=== PATIENT | female | born 1960 | race Hispanic/Latino ===

== ENCOUNTER 2018-10-24 22:14 | Emergency (ER) | payer OTHER, SELFPAY ==
[2018-10-24] MEDS ORDERED: diphenhydrAMINE 25 MG CAP ONE (22:41)
== END 2018-10-24 22:48 | disposition home or self-care (01) ==
LOC: NAV ERS 22:14
DX: S00.262A Insect bite (nonvenomous) of left eyelid and periocular area, initial encounter (principal); R21 Rash and other nonspecific skin eruption; F32.9 Major depressive disorder, single episode, unspecified; E11.9 Type 2 diabetes mellitus without complications; Z79.84 Long term (current) use of oral hypoglycemic drugs; W57.XXXA Bitten or stung by nonvenomous insect and other nonvenomous arthropods, initial encounter
CPT/HCPCS: 99282; Q0163

== ENCOUNTER 2019-08-18 22:00 | Emergency (ER) | payer SELFPAY ==
[2019-08-18] MEDS ORDERED: Oseltamivir 75 MG CAP ONE (22:54)
== END 2019-08-18 23:10 | disposition home or self-care (01) ==
LOC: NAV ERS 22:00
DX: J11.1 Influenza due to unidentified influenza virus with other respiratory manifestations (principal); E11.9 Type 2 diabetes mellitus without complications; F32.9 Major depressive disorder, single episode, unspecified
CPT/HCPCS: 99283

== ENCOUNTER 2020-02-23 23:19 | Emergency (ER) | payer SELFPAY ==
--- NOTE | 2020-02-23 23:41 | RAD ---
XR Hand Rt 3 View STANDARD HISTORY: Injury and pain right thumb FINDINGS: No fracture or dislocation is identified in the right thumb. .
== END 2020-02-23 23:59 | disposition home or self-care (01) ==
LOC: NAV ERS 23:19
DX: S67.01XA Crushing injury of right thumb, initial encounter (principal); F32.9 Major depressive disorder, single episode, unspecified; E11.9 Type 2 diabetes mellitus without complications; W31.9XXA Contact with unspecified machinery, initial encounter

== ENCOUNTER 2022-05-24 10:47 | Emergency (ER) | payer SELFPAY ==
[2022-05-24] MEDS ORDERED: Sodium Chloride 0.9% 1,000 ML ONE (11:32)
[2022-05-24] MEDS ORDERED: Ketorolac Tromethamine 30 MG/ML VIAL ONE (11:32)
[2022-05-24 11:44] LABS: #Basophils 0.1 thou/uL (0.0-0.2); #Lymphocytes 0.4 thou/uL (1.20-3.40); #Monocytes 0.5 thou/uL (0.11-0.59); #Neutrophils 4.9 thou/uL (1.40-6.50); %Basophils 0.9 % (0.0-1.0); %Eosinophils 0.2 % (0.0-10.0); %Lymphocytes 6.4 % (21.0-51.0); %Monocytes 8.3 % (0.0-10.0); %Neutrophils 84.3 % (42.0-75.0); Hemoglobin 14.7 g/dL (12.0-16.0); Mean Corpuscular HGB CONC 34.3 g/dL (32.0-36.0); Mean Corpuscular Hemoglobin 32.2 pg (27.0-31.0); Mean Corpuscular Volume 93.8 fl (78.0-98.0); Mean Platelet Volume 10.7 fL (7.4-10.4); Platelet Count 191 10x3/uL (130-400); RBC Distribution Width 11.3 % (11.5-14.5); Red Blood Cell (RBC) Count 4.56 mill/uL (4.20-5.40); White Blood Cell (WBC) Count 5.8 10x3/uL (4.8-10.8)
[2022-05-24 11:50] LABS: ALT (SGPT) 42 U/L (8-55); AST (SGOT) 43 U/L (5-34); Albumin 4.2 g/dL (3.5-5.0); Alkaline Phosphatase 104 U/L (40-110); Anion Gap 15 mmol/L (10-20); BUN (Urea Nitrogen) 14 mg/dL (9.8-20.1); Bilirubin, Total 0.5 mg/dL (0.2-1.2); Calc. Creatinine Clearance 0 mL/min (70-130); Calcium 9.1 mg/dL (7.8-10.44); Carbon Dioxide 23 mmol/L (22-29); Chloride 101 mmol/L (98-107); Estimated GFR 82; Globulin 3.2 g/dL (2.4-3.5); Glucose 141 mg/dL (70-105); Potassium 3.9 mmol/L (3.5-5.1); Protein, Total 7.4 g/dL (6.0-8.3); Sodium 135 mmol/L (136-145)
[2022-05-24 12:22] LABS: Bilirubin Negative (Negative); Blood, Urine Negative (Negative); Clarity Clear (Clear); Glucose, Urine (Dipstick) Negative (Negative); Ketone, Urine Negative (Negative); Leukocyte Small (Negative); Nitrite Negative (Negative); Protein, Urine (Dipstick) Negative (Neg-Trace); Specific Gravity, Urine 1.015 (1.005-1.030); Urobilinogen 0.2 mg/dL (Less than 2); pH, Urine 8.5 (5.0-9.0)
[2022-05-24 12:29] LABS: Bacteria/HPF Rare-Few HPF (None Seen); RBC/HPF None Seen HPF (0-3); Squamous Epithelial 0-3 HPF (0-3); WBC/HPF 0-3 HPF (0-3)
[2022-05-24 14:45] LABS: Troponin I Less than 0.010 ng/mL (< 0.028)
[2022-05-24] MEDS ORDERED: Dexamethasone 4 MG TAB ONE (15:03)
== END 2022-05-24 15:17 | disposition home or self-care (01) ==
LOC: NAV ERS 10:47
DX: B34.9 Viral infection, unspecified (principal); R07.89 Other chest pain; E11.9 Type 2 diabetes mellitus without complications
CPT/HCPCS: 36415; 71045; 80053; 81003; 81015; 84484; 85025; 85379; 87804; 93005; 96361; 96374; J1885; J7050; J8540